=== PATIENT | male | born 1990 | race Caucasian/White ===

== ENCOUNTER 2021-09-14 20:33 | Emergency (ER) | payer OTHER, SELFPAY ==
--- NOTE | ~2021-09-14 | XR_ITS ---
EXAMINATION: XR hand RT min 3V INDICATION: Right hand pain TECHNIQUE: Three views of the right hand are obtained. COMPARISON: None available FINDINGS: There is no fracture, dislocation, or subluxation. The bones, soft tissues, and joint space s are normal. IMPRESSION: 1. No acute osseous abnormality. Reviewed, dictated and finalized at location [facility]
[2021-09-14 20:56] VITALS: BP 136/99; PULSE 78; RESP 17; TEMP 36.7; O2SAT 99
--- NOTE | 2021-09-14 21:19 | PC.NURSE ---
photo taken of wound and uploaded to [employer]
[2021-09-14] MEDS: TETANUS,DIPHTHERIA,AC PERTUSSIS ADULT 0.5 ML (ADACEL) IM (21:37)
[2021-09-14] MEDS: KETOROLAC (*BKC) 60 MG/2 ML VIAL IM (21:39)
--- NOTE | 2021-09-14 21:54 | ED.UPPEXIN ---
HPI - Extremity Injury (Upper) General Chief Complaint: Extremity Injury, Upper Stated Complaint: hand injury Time Seen by Provider: 09/14/21 20:37 Source: patient and RN notes reviewed Mode of arrival: ambulatory Limitations: no limitations History of Present Illness MD complaint: injury to: right and hand Other injuries: none Place: home Severity: mild Severity scale (1-10): 5 Relieving factors: none Exacerbating factors: movement of extremity Associated symptoms: denies other symptoms Related Data Home Medications Medication Instructions Recorded Confirmed esomeprazole magnesium [Nexium] 40 mg PO DAILY 09/14/21 09/14/21 Allergies Allergy/AdvReac Type Severity Reaction Status Date / Time No Known Allergies Allergy Verified 09/14/21 20:52 Review of Systems Review of Systems: No All systems reviewed & are unremarkable except as noted in HPI and below PMFSH Past Medical History Medical History Contusion of right hand Exam Const: General: no acute distress and alert Orientation/consciousness: patient oriented x3 Limitations: no limitations HENMT: Head: normal to inspection Eyes: Conjunctivae: conjunctivae normal Pupils: Equal, round and reactive pupils present EOM: EOMs intact bilaterally Neck: Neck: normal visual inspection and no lymphadenopathy Other: supple neck Chest: Chest palpation & inspection: normal inspection of the chest Resp: Effort & Inspection: normal respiratory effort Auscultation: clear to auscultation bilaterally Cardio: Rate: regular rate Rhythm: regular rhythm GI: GI Palp: Yes Soft to palpation and No Tenderness to palpation present (GI) Auscultation: normal bowel sounds : General: Yes bladder normal to palpation and Yes no CVA tenderness Male General Exam: Yes normal external exam Back/Spine/Pelvis: Back: no CVA tenderness Skin: General skin exam: normal color Neuro: General: patient oriented x3, moves all extremities, no meningeal signs, no focal motor deficits and CN's II-XI intact bilaterally Extrem: General: normal to inspection and no pedal edema Other: minimal dorsal right hand tenderness with no acute redness, swelling or deformity. Psych: Appearance: grossly normal and well kempt Mental Status: mental status grossly normal Affect: normal affect Attitude: cooperative Course Course Emergency Course: Pt was stable in the ED> Reevaluation(s) Reevaluation #1: VSS Date: 09/14/21 Time: 21:35 Vital Signs Vital signs: Vital Signs Temperature 36.7 C 09/14/21 20:56 Pulse Rate 78 09/14/21 20:56 Respiratory Rate 17 09/14/21 20:56 Blood Pressure 136/99 H 09/14/21 20:56 Pulse Oximetry 99 09/14/21 20:56 Temperature 36.4 C L 09/14/21 22:26 Pulse Rate 107 H 09/14/21 22:26 Respiratory Rate 18 09/14/21 22:26 Blood Pressure 137/83 09/14/21 22:26 Pulse Oximetry 99 09/14/21 22:26 MDM - Extremity Injury (Upper) Differential Diagnosis Differential diagnosis: Likely sprain and strain of wrist and fracture of hand Medical Records Attestation: I reviewed the patient's medical records. Imaging Data Radiologist's impression: See the report. Critical Care Time Critical Care Time Critical Care Time: No Total Critical Care Time: 0 Discharge Plan Discharge Clinical Impression: Contusion of right hand Patient Disposition: Home, Self-Care Condition: Stable Instructions: Antibiotic Form, How to Use a Sling (ED), Contusion in Adults (ED) Additional Instructions: Home. May RTC prn. PMD in 1-2Rx below
[2021-09-14 22:26] VITALS: BP 137/83; PULSE 107; RESP 18; TEMP 36.4; O2SAT 99
== END 2021-09-14 22:28 | disposition home or self-care (01) ==
PROVIDERS: Emergency Provider Emergency Medicine; PCP Family Medicine
DX: S60.221A Contusion of right hand, initial encounter (principal)
CPT/HCPCS: 73130; 90471; 90715; 96372; 99283; A4565; J1885